=== PATIENT | female | born 1950 | race Caucasian/White ===

== ENCOUNTER 2019-01-02 08:15 | Outpatient (CLI) | payer BC ==
--- NOTE | 2019-01-02 10:27 | RAD ---
XR Barium Swallow Esophagus HISTORY: Evaluation of hiatal hernia preop COMPARISON: CT examination of 06/09/2015. FINDINGS: The patient ingested barium and crystals without difficulty. Esophageal mucosa and motility were normal. A hernia is demonstrated which appears to be more of a hiatal type hernia. It is not a true paraesophageal hernia. The GE junction is located along the posterior aspect on the fundus of the stomach, but is still slightly above the esophageal hiatus and therefore is not a true paraesophageal hernia. No reflux, stricture or mass demonstrated.. IMPRESSION: Hiatal hernia as described above
== END 2019-01-02 08:16 | disposition home or self-care (01) ==
LOC: RAD 08:15
PROVIDERS: ATTEND Surgery
DX: K44.9 Diaphragmatic hernia without obstruction or gangrene (principal)
CPT/HCPCS: 74220

== ENCOUNTER 2019-01-29 05:52 | Outpatient (CLI) | payer BC ==
[2019-01-29 11:15] LABS: #Eosinphils 0.2 thou/uL (0.0-0.7); #Lymphocytes 1.3 thou/uL (1.20-3.40); #Monocytes 0.4 thou/uL (0.11-0.59); #Neutrophils 4.6 thou/uL (1.40-6.50); %Basophils 0.4 % (0.0-1.0); %Eosinophils 2.7 % (0.0-10.0); %Lymphocytes 20.7 % (21.0-51.0); %Monocytes 5.6 % (0.0-10.0); %Neutrophils 70.6 % (42.0-75.0); Hemoglobin 11.9 g/dL (12.0-16.0); Mean Corpuscular HGB CONC 32.1 g/dL (32.0-36.0); Mean Corpuscular Volume 84.1 fL (78.0-98.0); Mean Platelet Volume 7.5 fL (7.4-10.4); Platelet Count 276 thou/uL (130-400); RBC Distribution Width 13.4 % (11.5-14.5); White Blood Cell (WBC) Count 6.4 thou/uL (4.8-10.8)
[2019-01-29 11:35] LABS: Anion Gap 12 mmol/L (10-20); BUN (Urea Nitrogen) 15 mg/dL (9.8-20.1); Calc. Creatinine Clearance 0 mL/min (70-130); Calcium 9.5 mg/dL (7.8-10.44); Carbon Dioxide 26 mmol/L (23-31); Chloride 102 mmol/L (98-107); Estimated GFR-MDRD 66; Glucose 118 mg/dL (80-115); Sodium 136 mmol/L (136-145)
--- NOTE | 2019-01-30 22:56 | EKG ---
Test Reason : Blood Pressure : / mmHG Vent. Rate : 076 BPM Atrial Rate : 076 BPM P-R Int : 164 ms QRS Dur : 076 ms QT Int : 372 ms P-R-T Axes : 020 017 042 degrees QTc Int : 418 ms Normal sinus rhythm Normal ECG No previous ECGs available Confirmed by Ralf RODGERS ([id number]) on 01/30/2019 10:56:35 PM Referred By: MARYCHUY Confirmed By:Ralf RODGERS
== END 2019-01-29 05:53 | disposition home or self-care (01) ==
LOC: LABBT 05:52
PROVIDERS: ATTEND Surgery
DX: Z01.818 Encounter for other preprocedural examination (principal); K44.9 Diaphragmatic hernia without obstruction or gangrene
CPT/HCPCS: 80048; 85025; 93005; 93010

== ENCOUNTER 2019-01-30 05:54 | Inpatient (IN) | payer BC ==
[2019-01-29 10:30] VITALS: BMI 40.6
[2019-01-30] MEDS ORDERED: ceFAZolin Sodium (SDC) 2 GM/100 ML BAG ONE (06:10)
[2019-01-30] MEDS ORDERED: Fentanyl 100 MCG/2 ML VIAL ONE ×4 (06:32→11:06)
[2019-01-30] MEDS ORDERED: Bupivacaine/Epinephrine 0.25% 30 ML VIAL ONE (06:36)
[2019-01-30] MEDS ORDERED: Bupivacaine HCl 0.5%/Epinephrine 1:200,000/PF 30 ml Vial ONE (09:12)
--- NOTE | 2019-01-30 09:22 | RAD ---
EXAM: Single view of the chest HISTORY: Recent surgery. Evaluate for pneumothorax COMPARISON: None FINDINGS: Single view of the chest shows a normal sized cardiomediastinal silhouette. An endotrachea l tube is seen with its tip at the s[place]. There is a moderate right pneumothorax. There is no evidence of consolidation, mass, or pleural effusion. The bones are unremarkable. IMPRESSION: Moderate right pneumothorax. Dr. Wade notified of findings at 9:19 AM on 01/30/2019
--- NOTE | 2019-01-30 09:29 | RAD ---
EXAM: Single view of the chest HISTORY: Right pneumothorax COMPARISON: 01/30/2019 FINDINGS: Single view of the chest shows a normal sized cardiomediastinal silhouette. A chest tube i s now seen with evacuation of the right pneumothorax. The endotracheal tube is seen with its tip at the sakina. There is no evidence of consolidation, mass, or pleural effusion. The bones are unremark able. IMPRESSION: Evacuation of right pneumothorax
[2019-01-30] MEDS ORDERED: HYDROmorphone 2 MG/ML VIAL ONE (09:55)
[2019-01-30] MEDS ORDERED: Zolpidem Tartrate 5 MG TAB PO PRN (10:42)
[2019-01-30] MEDS ORDERED: Naloxone HCl 0.4 mg/ml Vial IV PRN (10:42)
[2019-01-30] MEDS ORDERED: diphenhydrAMINE 25 MG CAP PO PRN (10:42)
[2019-01-30] MEDS ORDERED: Ondansetron HCl/PF 4 MG/2 ML Vial IVP PRN (10:42)
[2019-01-30] MEDS ORDERED: Promethazine HCl 25 MG/ML VIAL IM PRN ×3 (10:42→11:35)
[2019-01-30] MEDS ORDERED: Promethazine HCl 25 MG/ML VIAL SLOW IVP PRN (10:42)
[2019-01-30] MEDS ORDERED: Ondansetron PF 4 MG/2 ML Vial IVP PRN ×2 (10:42→11:35)
[2019-01-30] MEDS ORDERED: diphenhydrAMINE 50 MG/ML VIAL IVP PRN (10:42)
[2019-01-30] MEDS ORDERED: HYDROmorphone 2 MG/ML VIAL SLOW IVP PRN (10:42)
[2019-01-30] MEDS ORDERED: diphenhydrAMINE 50 MG/ML VIAL IM PRN (10:42)
[2019-01-30] MEDS ORDERED: Communication Order-Pharmacy FS SCH (10:45)
[2019-01-30] MEDS ORDERED: Dextrose 50% Abboject 50 ML SYRINGE SLOW IVP PRN (11:35)
[2019-01-30] MEDS ORDERED: Morphine 2 MG/ML SYRINGE SLOW IVP PRN (11:35)
[2019-01-30] MEDS ORDERED: hydrALAZINE 20 MG/ML VIAL SLOW IVP PRN (11:35)
[2019-01-30] MEDS ORDERED: Morphine 4 MG/ML VIAL SLOW IVP PRN (11:35)
[2019-01-30] MEDS ORDERED: Dextrose 5% in Water 1,000 ML IV PRN (11:35)
[2019-01-30] MEDS ORDERED: Lidocaine 1% PF 5 ML VIAL ONE (12:57)
[2019-01-30] MEDS ORDERED: Rocuronium Bromide 10 MG/ML (10ML VIAL) ONE (12:57)
[2019-01-30] MEDS ORDERED: Glycopyrrolate 0.2 MG/ML 5 ML SYRINGE ONE (12:57)
[2019-01-30] MEDS ORDERED: Dexamethasone 20 MG/5 ML VIAL ONE (12:57)
[2019-01-30] MEDS ORDERED: Ondansetron PF 4 MG/2 ML Vial ONE (12:57)
[2019-01-30] MEDS ORDERED: PROPOFOL 200 MG/20 ML VIAL ONE (12:57)
[2019-01-30] MEDS ORDERED: Acetaminophen 1,000 MG in Premix Bag 1 BAG IVPB PRN (17:16)
[2019-01-30] MEDS: Sodium Chloride 0.9% 1,000 ML IV SCH (17:21)
[2019-01-30] MEDS: Enoxaparin Sodium 40 MG/0.4 ML SYRINGE SC SCH (21:15)
[2019-01-31 05:45] LABS: #Monocytes 0.6 thou/uL (0.11-0.59); #Neutrophils 8.5 thou/uL (1.40-6.50); %Basophils 0.3 % (0.0-1.0); %Eosinophils 0.1 % (0.0-10.0); %Monocytes 5.9 % (0.0-10.0); %Neutrophils 83.7 % (42.0-75.0); Hemoglobin 10.5 g/dL (12.0-16.0); Mean Corpuscular HGB CONC 32.9 g/dL (32.0-36.0); Mean Corpuscular Hemoglobin 28.3 pg (27.0-31.0); Mean Platelet Volume 7.5 fL (7.4-10.4); Platelet Count 271 thou/uL (130-400); RBC Distribution Width 13.5 % (11.5-14.5); White Blood Cell (WBC) Count 10.2 thou/uL (4.8-10.8)
[2019-01-31 06:10] LABS: Anion Gap 13 mmol/L (10-20); BUN (Urea Nitrogen) 13 mg/dL (9.8-20.1); Calc. Creatinine Clearance 108 mL/min (70-130); Carbon Dioxide 24 mmol/L (23-31); Chloride 102 mmol/L (98-107); Estimated GFR-MDRD 74; Glucose 112 mg/dL (80-115); Potassium 4.6 mmol/L (3.5-5.1); Sodium 134 mmol/L (136-145)
--- NOTE | 2019-01-31 07:16 | PDOC.GSPN ---
Surgery Progress Note: Subj - Subjective Narrative: Mrs. Louis is a 68 year old female who is day 1 post-op after hiatal hernia repair and right chest tube placement for right pneumothorax. She states she is doing okay this morning, however had a "rough" night. She had difficulty sleeping since her chest tube is uncomfortable and not allowing her to take in a full deep breath. However, she is tolerating liquids (water and broth) very well and able to ambulate to and from the bathroom. Using spirometer consistently. Patient reports increased frequency of urination without burning, fever, or chills. She has involuntarily urinated the bed several times since surgery and overnight. She describes that she has little control over when she will urinate. She denies chest pain, reflux, dizziness, nausea, vomiting, and bowel movements or passing of flatus. Surgery Progress Note: Obj - Vital signs Vital signs: Vital Signs - Most Recent Temp Pulse Resp BP Pulse Ox 98.4 F 93 16 130/74 93 L 01/31/19 03:03 01/31/19 03:03 01/31/19 03:03 01/31/19 03:03 01/31/19 03:03 - Physical Exam General: no distress, well developed, other (Mild discomfort due to chest tube placement. Uncomfortable when coughing.) Neck: no lymphadectomy, no masses Cardiovascular: regular rate and rhythm, no murmur Respiratory: clear to auscultation, other (Lungs are clear, reduced expansion but air movement is present. Patient is using spirometry consistently. No fluid/ blood seen in pleurovac this morning.) Abdomen: soft, nondistended, positive bowel sounds, appropriately tender, other (No bruits auscultated. Has not passed flatus.) Genitourinary (Female): other (Patient reports involuntarily urinating on herself since surgery.) Integumentary: no rash Psychiatric: oriented to time, oriented to person, oriented to place Wound: dressing clean,dry,intact, healing well, other (Incisions (5) healing well, non-erythematous, and without purulent discharge.) Surgery Progress Note: Results - Labs Result Diagrams: 01/31/19 04:15 01/31/19 04:15 Lab results: Laboratory Results - last 24 hr 01/31/19 01/31/19 04:15 04:15 WBC 10.2 RBC 3.70 L Hgb 10.5 L Hct 31.8 L MCV 86.0 MCH 28.3 MCHC 32.9 RDW 13.5 Plt Count 271 MPV 7.5 Neutrophils % 83.7 H Lymphocytes % 10.0 L Monocytes % 5.9 Eosinophils % 0.1 Basophils % 0.3 Neutrophils # 8.5 H Lymphocytes # 1.0 L Monocytes # 0.6 H Eosinophils # 0.0 Basophils # 0.0 Sodium 134 L Potassium 4.6 Chloride 102 Carbon Dioxide 24 Anion Gap 13 BUN 13 Creatinine 0.78 Estimated GFR (MDRD) 74 Glucose 112 Calcium 9.0 Surgery Progress Note: A/P - Plan Plan: Mrs. Louis is a 68 year old female who is day 1 post-op after hiatal hernia repair and right chest tube placement. Hiatal Hernia --Patient recovering well from surgery. -Continue full liquid diet today. -Increase ambulation as tolerable. -Will monitor passing of flatus and bowel movements today. Right Pneumothorax --Patient currently has right chest tube in place. No fluid/blood seen on pleurovac this morning. -Repeat X-ray is scheduled for this morning. -Continue use of spirometer today. Urinary Incontinence -Will continue to monitor her involuntary urination and increased urinary frequency today. Addendum - Physician - Physician Attestation Date/Time: 01/31/19 [id number] I personally performed or re-performed the physical examination and medical decision making. I have verified all student documentation or findings, including history, physical exam and/or medical decision making. C/o pain at chest tube site. CXR no ptx ,will place on water seal. OOB, con fulls.
--- NOTE | 2019-01-31 08:01 | RAD ---
PORTABLE CHEST: HISTORY: Pneumothorax. COMPARISON: 01/30/2019 FINDINGS: The right chest tube is unchanged. No evidence of pneumothorax. Some patchy atelectasis or infiltra te in the left lung base is seen to the cardiac silhouette. The ET tube has been removed. IMPRESSION: Question left basilar atelectasis or infiltrate. No pneumothorax. No significant interval change. POS: [facility]
[2019-01-31] MEDS: fentaNYL Citrate/PF 2,000 MCG in Sodium Chloride 0.9% 60 ML IV PRN (09:34)
[2019-01-31] MEDS: Pantoprazole 40 MG VIAL IVP SCH (09:39)
[2019-01-31] MEDS: Anastrozole 1 MG TAB PO SCH (09:44)
[2019-01-31] MEDS: Sodium Chloride 0.9% 1,000 ML IV SCH (14:59)
[2019-01-31] MEDS ORDERED: Prevnar 13-Val Conj/PF 0.5 ML SYRINGE IM ONE (16:00)
[2019-01-31] MEDS ORDERED: Sodium Chloride 0.9% 1,000 ML IV SCH (16:30)
[2019-01-31] MEDS: Enoxaparin Sodium 40 MG/0.4 ML SYRINGE SC SCH (20:15)
[2019-02-01 00:52] LABS: #Eosinphils 0.1 thou/uL (0.0-0.7); #Lymphocytes 2.9 thou/uL (1.20-3.40); #Monocytes 0.7 thou/uL (0.11-0.59); %Basophils 0.1 % (0.0-1.0); %Eosinophils 0.8 % (0.0-10.0); %Lymphocytes 25.1 % (21.0-51.0); Hemoglobin 11.7 g/dL (12.0-16.0); Mean Corpuscular HGB CONC 32.5 g/dL (32.0-36.0); Mean Corpuscular Hemoglobin 28.1 pg (27.0-31.0); Mean Corpuscular Volume 86.4 fL (78.0-98.0); Mean Platelet Volume 7.3 fL (7.4-10.4); Platelet Count 296 thou/uL (130-400); RBC Distribution Width 13.5 % (11.5-14.5); Red Blood Cell (RBC) Count 4.15 mill/uL (4.20-5.40); White Blood Cell (WBC) Count 11.7 thou/uL (4.8-10.8)
[2019-02-01 01:10] LABS: Anion Gap 16 mmol/L (10-20); BUN (Urea Nitrogen) 14 mg/dL (9.8-20.1); Calc. Creatinine Clearance 89 mL/min (70-130); Calcium 9.5 mg/dL (7.8-10.44); Carbon Dioxide 24 mmol/L (23-31); Chloride 99 mmol/L (98-107); Estimated GFR-MDRD 59; Glucose 113 mg/dL (80-115); Potassium 3.6 mmol/L (3.5-5.1); Sodium 135 mmol/L (136-145)
[2019-02-01] MEDS ORDERED: Diltiazem HCl 125 MG, Admixture Fee 1 EACH in Sodium Chloride 0.9% 100 ML IVPB SCH (01:45)
[2019-02-01] MEDS ORDERED: Dextrose 5 % And 0.9 % NaCl 1,000 ML IV SCH ×2 (01:45→09:29)
[2019-02-01] MEDS ORDERED: Digoxin 0.5 MG/2 ML AMP ONE ×2 (02:28→04:34)
[2019-02-01] MEDS ORDERED: Digoxin 0.5 MG/2 ML AMP SLOW IVP SCH (02:45)
--- NOTE | 2019-02-01 04:42 | CON ---
DATE OF CONSULTATION: 02/01/2019 PRIMARY SERVICE ATTENDING: Joseph Wade MD PRIMARY CARE PROVIDER: Dr. Liam Williamson with [facility]. REASON FOR CONSULTATION: Atrial fibrillation with rapid ventricular response. HISTORY OF PRESENT ILLNESS: This is a 68-year-old female, who was initially admitted under the surgical service, undergoing a laparoscopic hiatal hernia repair for diaphragmatic hernia with associated GI bleed. The patient underwent the procedure on 01/30/2019 with associated right pneumothorax as a complication due to adhesions of the gastric contents at the time of the repair. The patient underwent subsequent right chest tube insertion and has been managed postoperatively with a pain pump. The patient states she has had no specific bowel movements since the procedure; however, last bowel movement was just prior to the procedure on 01/30/2019. The patient has noted increasing abdominal distention over the last 12 to 14 hours. The patient denied any jennifer nausea, vomiting or fever. The patient was discovered by nursing personnel with elevated heart rate with EKG confirming atrial fibrillation with rapid ventricular response with heart rates in the 150s to 170s. The patient denies any prior history of coronary disease or cardiac conditions. The patient does admit to a history of recurrent anemia, requiring 4 packed red blood cell transfusions in 2019. The patient was transferred to the telemetry unit for further evaluation and control of the atrial fibrillation. PAST MEDICAL HISTORY: 1. Diaphragmatic hernia, status post laparoscopic hiatal hernia repair, postop day #3. 2. Chronic normocytic anemia, status post 4 units of packed red blood cells in 2019. 3. Breast carcinoma. PAST SURGICAL HISTORY: 1. Status post tonsillectomy. 2. Status post appendectomy. 3. Status post breast lumpectomy. CURRENT MEDICATIONS: 1. Anastrozole 1 mg p.o. daily. 2. Enteric-coated aspirin 81 mg p.o. daily. 3. Vitamin D3 1000 units p.o. daily. 4. Vitamin B12 5000 mcg p.o. daily. 5. Ferrous sulfate 325 mg p.o. daily. 6. Glucosamine 1 capsule p.o. daily. 7. Protonix 40 mg p.o. b.i.d. 8. Red yeast rice extract 600 mg p.o. daily. 9. Coenzyme Q10 200 mg p.o. daily. ALLERGIES: NO KNOWN DRUG ALLERGIES. FAMILY HISTORY: Father after a diagnosis of cancer. SOCIAL HISTORY: Resides in [place], [place]. Retired. No tobacco or illicit drug use. Social alcohol use. REVIEW OF SYSTEMS: CONSTITUTIONAL: Negative for weight loss or gain, ability to conduct usual activities. SKIN: Negative for rash, itching. EYES: Negative for double vision, pain. ENT/MOUTH: Negative for nose bleeding, neck stiffness, pain, tenderness. CARDIOVASCULAR: Negative for palpitations, dyspnea on exertion, orthopnea. RESPIRATORY: Negative for shortness of breath, wheezing, cough, hemoptysis, fever or night sweats. GASTROINTESTINAL: Negative for poor appetite, abdominal pain, heartburn, nausea, vomiting, constipation, or diarrhea. GENITOURINARY: Negative for urgency, frequency, dysuria, nocturia. MUSCULOSKELETAL: Negative for pain, swelling. NEUROLOGIC/PSYCHIATRIC: Negative for anxiety, depression. ALLERGY/IMMUNOLOGIC: Negative for skin rash, bleeding tendency. Otherwise negative except as stated per HPI. PHYSICAL EXAMINATION: VITAL SIGNS: Blood pressure 124/68, pulse 170, respiratory rate 20, temperature 98.5 degrees Fahrenheit, and O2 saturation 96% on room air. GENERAL APPEARANCE: This is a 68-year-old female, alert and oriented x3, pleasant, responsive, in no acute distress. HEENT: Pupils are equal, round, reactive to light and accommodation. Extraocular muscles are intact. No scleral icterus. No conjunctival injection. Nares are patent. OP is clear. Teeth in fair repair. NECK: Supple. No cervical adenopathy. No thyromegaly. No carotid bruits. No JVD appreciated. Cervical spine with full active and passive range of motion. No meningeal signs noted. CHEST: Lungs are clear to auscultation bilaterally. Right chest with chest tube in place. CARDIOVASCULAR EXAM: S1 and S2 with irregular rate and rhythm with tachycardia. ABDOMEN: Distended with mild tenderness to palpation in the mid epigastric region. Postsurgical changes consistent with prior laparoscopic procedure noted. Bowel sounds are diminished in all 4 quadrants. EXTREMITIES: Warm and dry with fair turgor. No clubbing, cyanosis or asymmetric edema appreciated. Pulses palpable distally at the dorsalis pedis, posterior tibial, and popliteal arteries bilaterally. Capillary refill less than 2 seconds. NEUROLOGIC: Cranial nerves 2 through 12 are grossly intact. No focal or lateralizing signs appreciated. PERTINENT LAB AND X-RAY FINDINGS: Sodium 135, potassium 3.6, chloride 99, CO2 of 24, BUN 14, creatinine 0.94, glucose 113, and calcium 9.5. CBC showed a white blood cell count of 11.7, hemoglobin 11.7, hematocrit 36, and platelet count 296 with normal differential. Portable chest x-ray dated 02/01/2019 by my interpretation shows right-sided chest tube in appropriate position. No evidence of worsening pneumothorax. No acute or new process identified. EKG dated 02/01/2019 at 12:10 a.m. showed atrial fibrillation with rapid ventricular response with heart rates in the 160s. ASSESSMENT/PLAN: 1. New-onset atrial fibrillation with rapid ventricular response. The patient will be admitted to the telemetry unit. Start Cardizem 20 mg IV bolus x1 followed by Cardizem at 10 mg/hour infusion. Check TSH and magnesium level in the a.m. Check 2D transthoracic echocardiogram for wall motion abnormality and valvular function. Consult Cardiology Service in the a.m. for any further recommendations. We will continue current strategy for rate control. Hold anticoagulation due to recent surgical intervention and new-onset process. 2. Abdominal distention. Concern for postoperative ileus given the patient's recent surgical intervention. Check KUB of the abdomen now. N.p.o. status except for sips of water and ice. General Surgery to re-evaluate in the a.m. 3. Right pneumothorax. Continue chest tube drainage to water-seal. Chest imaging reassuring for control of a previous pneumothorax. 4. Chronic normocytic anemia. Stable currently. We will continue to monitor hemoglobin trend. Repeat CBC in the a.m. 5. Diaphragmatic hernia, status post laparoscopic repair. Postop day #3. Continue pain control with [employer] pump. 6. Prophylaxis. SCDs while in bed. Lovenox 40 mg subcutaneously daily. 7. Code status is full. Surrogate medical decision maker is the patient's daughter. Thank you for the consult. We will continue to monitor with primary service. Job ID: [id number]
--- NOTE | 2019-02-01 08:11 | RAD ---
CHEST ONE VIEW: Indication: Heart racing at 150 bpm. Comparison: 01-21-19 IMPRESSION: Right sided thoracostomy tube is unchanged. No pneumothorax is evident. The lungs are clear. Heart si ze is normal. POS: [facility]
--- NOTE | 2019-02-01 08:18 | RAD ---
CHEST ONE VIEW: History: Tachycardia. Comparison: 02-01-19 at 12:25 a.m. FINDINGS: Stable cardiac silhouette. The pulmonary vessels and hilum are normal. Costophrenic angles are clear. No masses or consolidation. Stable right sided chest tube. No significant pneumothorax. IMPRESSION: No significant change. POS: [facility]
--- NOTE | 2019-02-01 08:19 | RAD ---
ONE VIEW ABDOMEN: History: Abdominal distention. Evaluate for post-operative ileus. FINDINGS: Supine radiograph demonstrates air filled loops of upper normal colon. Paucity of small bowel gas. r is noted within the stomach. IMPRESSION: Post op ileus is suspected. Continued surveillance to ensure resolution is recommended. POS: [facility]
[2019-02-01] MEDS: Anastrozole 1 MG TAB PO SCH (08:45)
[2019-02-01] MEDS: Pantoprazole 40 MG VIAL IVP SCH (08:45)
--- NOTE | 2019-02-01 09:24 | PDOC.GSPN ---
Surgery Progress Note: Subj - Subjective Patient reports: feels better Narrative: Mrs. Louis is a 68 y/o female who is post-op day 2 for hiatal hernia repair and right chest tube for right pneumothorax. Went into atrial fibrillation with RVR last night and was moved to telemetry. Patient is feeling better this morning. She experienced chest pain and dyspnea last night, however those have resolved. Her atrial fibrillation with RVR converted back to normal sinus rhythm around 5:00am this morning. She is urinating well and not voiding involuntarily anymore. She is currently NPO as of last night and suction was put back on her chest tube. Patient is continuing to use her spirometer device consistently, but has mild pain with coughing for which she manages with the patient-controlled fentanyl device. Patient denies nausea, vomiting, fevers, chills, current chest pain, current shortness of breath, or dizziness. She has not passed flatus or had a bowel movement yet since surgery. Surgery Progress Note: Obj - Vital signs Vital signs: Vital Signs - Most Recent Temp Pulse Resp BP Pulse Ox 98.3 F 84 18 126/58 L 92 L 02/01/19 07:40 02/01/19 07:40 02/01/19 07:40 02/01/19 07:40 02/01/19 07:40 - Physical Exam General: no distress ENT: normal mucosa Neck: no lymphadectomy, no masses Cardiovascular: regular rate and rhythm, no murmur Respiratory: clear to auscultation, normal expansion, other (Some pain with coughing.) Abdomen: positive bowel sounds, distended (Abdomen is distended and slightly firm.) Integumentary: no rash Musculoskeletal: other (No edema in lower extremities.) Wound: dressing clean,dry,intact, healing well (No signs of erythema or purulent discharge.) Surgery Progress Note: Results - Labs Result Diagrams: 02/01/19 00:45 02/01/19 00:45 Lab results: Laboratory Results - last 24 hr 02/01/19 02/01/19 02/01/19 00:45 00:45 04:14 WBC 11.7 H RBC 4.15 L Hgb 11.7 L Hct 35.9 L MCV 86.4 MCH 28.1 MCHC 32.5 RDW 13.5 Plt Count 296 MPV 7.3 L Neutrophils % 68.0 Lymphocytes % 25.1 Monocytes % 6.0 Eosinophils % 0.8 Basophils % 0.1 Neutrophils # 8.0 H Lymphocytes # 2.9 Monocytes # 0.7 H Eosinophils # 0.1 Basophils # 0.0 Sodium 135 L Potassium 3.6 Chloride 99 Carbon Dioxide 24 Anion Gap 16 BUN 14 Creatinine 0.94 Estimated GFR (MDRD) 59 Glucose 113 Calcium 9.5 Magnesium 2.0 TSH 3rd Generation 02/01/19 04:14 WBC RBC Hgb Hct MCV MCH MCHC RDW Plt Count MPV Neutrophils % Lymphocytes % Monocytes % Eosinophils % Basophils % Neutrophils # Lymphocytes # Monocytes # Eosinophils # Basophils # Sodium Potassium Chloride Carbon Dioxide Anion Gap BUN Creatinine Estimated GFR (MDRD) Glucose Calcium Magnesium TSH 3rd Generation 1.8405 Surgery Progress Note: A/P - Plan Plan: Mrs. Louis is a 68 y/o female who is post-op day 2 for hiatal hernia repair and right chest tube for right pneumothorax. Went into atrial fibrillation with RVR last night and was moved to telemetry. Hiatal Hernia Repair --Likely experiencing some ileus from abdominal surgery. -Convert NPO to full liquid diet -Will monitor passing of flatus and bowel movements. -Continue using spirometer jenna cough to help with lung expansion -Promote ambulation and walking as patient progresses. Right Pneumothorax --Currently has right chest tube in place on suction. No air leaks as tested at bedside. -Continue suction and monitor drainage. -Plan to take tube out tomorrow. Atrial fibrillation with RVR event --Currently in regular sinus rhythm and asymptomatic -Continue Cardizem IV and monitor rhythm. Urinary Incontinence --Resolved, currently voiding normally.
--- NOTE | 2019-02-01 20:25 | CON ---
DATE OF CONSULTATION: 02/01/2019 INDICATION FOR CONSULTATION: A 68-year-old female, who is status post a hiatal hernia repair with an iatrogenic pneumothorax during the procedure, who has developed an episode of atrial fibrillation with rapid ventricular response. This was converted back to normal sinus rhythm after about 5 hours of IV diltiazem. At this time, she is very comfortable. She has had a cardiac workup approximately 5 years ago and was unremarkable. She has had a long history of anemia and has had a hiatal hernia for quite some time. She has required about 4 units of packed red blood cells during this year already and was advised to seek further GI consultation. She was then during the evaluation, noted to have a hiatal hernia as well as the ulcerations and was advised to undergo surgical correction. This was performed and then she developed postoperatively the atrial fibrillation with rapid ventricular response, approximately 10 or 12 o'clock yesterday evening and then converted back to sinus rhythm earlier this morning with the IV diltiazem. Originally, she was asymptomatic, but then upon questioning, she did notice her heart was beating fast, but she has had no previous history of this in the past. She denies any symptoms. At home, she is able to do most of her daily chores without too much complaints or problems or symptoms. She has had no chest pain during this time or shortness of breath or lower extremity edema. Does not have any symptoms of congestive heart failure otherwise. She did have an echocardiogram performed and I will review that later. At this time, she is comfortable and is maintaining sinus rhythm on the IV diltiazem. She is slowly starting to take p.o. medications after her surgical procedure day before yesterday. PAST MEDICAL HISTORY: Significant for the recent hernia repair as noted above. She has history of chronic anemia, which is normocytic, she takes iron, she has had transfusions, and hopefully this will improve now that she has had surgical correction of the hiatal hernia and the ulcerations. She has had a history of a left breast cancer with a lumpectomy. She has had a tonsillectomy, appendectomy. She has also had chronic knee pain. She has diverticulitis. MEDICATIONS: Prior to admission include; 1. Enteric-coated aspirin 81 mg a day. 2. Anastrozole 1 mg daily. 3. Vitamin D3. 4. Vitamin B12. 5. Glucosamine. 6. Ferrous sulfate. 7. Protonix. 8. Red yeast rice and coenzyme Q10. ALLERGIES: NONE. FAMILY HISTORY: Noncontributory for any early heart disease. Her father did have a myocardial infarction at age 69, I believe he had also a diagnosis of malignancy. SOCIAL HISTORY: She is retired. She has no alcohol or tobacco abuse. She lives at home. She does her daily routines without too many complications or problems. REVIEW OF SYSTEMS: Her 12-point review of systems is unremarkable except for the knee pain and some fatigue as when she is more anemic. PHYSICAL EXAMINATION: GENERAL: Reveals a well-developed, well-nourished female, who is in no acute distress at this time. She is alert. She is oriented. She is very pleasant. VITAL SIGNS: Show blood pressure of 126/58, which increased at later today to 159/68. She is afebrile. Heart rate is in the 80s and shows a sinus rhythm, respiratory rate is 18, O2 saturation 95%. Please note that previously her heart rate was up to 168 beats per minute with atrial fibrillation prior to converting to sinus rhythm. HEENT: Shows the head to be normocephalic and atraumatic. Carotid pulses are present without bruits. CHEST: Clear to auscultation. She does have a chest tube in the right hemothorax area. ABDOMEN: Distended. She is tympanic, but does have some bowel sounds. EXTREMITIES: Show no clubbing, cyanosis, or edema. CARDIOVASCULAR: She has a regular rate and rhythm with normal S1 and S2. There was no S3 or S4. There were no significant murmurs, heaves, thrills, bruits, or rubs. Pedal pulses are present. NEUROLOGIC: She appears to be fully intact. SKIN: Warm and dry. LABORATORY DATA: Show a WBC of 11.7, hemoglobin 11.7, platelet count of 296,000. Her sodium was 135, BUN was 14, creatinine 0.94, blood sugar was 113. EKG earlier showed atrial fibrillation with rapid ventricular response at 158 beats per minute, but no ST-segment changes were noted. There were very minimal nonspecific changes, did not indicate evidence of ischemia. At this time, she appears to be doing quite well. I will review her echocardiogram. IMPRESSION: 1. Atrial fibrillation with rapid ventricular response, which is converted back to sinus rhythm with diltiazem. We will switch her from IV diltiazem to p.o. diltiazem and hopefully just within the next 1 to 2 weeks, this can be stopped. She did have a workup about 5 years ago, which was unremarkable. Her EKG also at this time with the tachycardia did not show any significant ST-segment depression that would indicate ischemia. It maybe advisable, when she has recovered from her hiatal hernia repair that she will undergo a repeat stress test since the last one was approximately 5 years ago, and again I will review her echocardiogram. 2. History of hiatal hernia repair. She seems to be doing quite well postoperatively. She did have an iatrogenic pneumothorax due to adhesions with the hiatal hernia, but appears to be doing quite well. The chest tube remains in place. 3. History of chronic anemia. This hopefully will improve after surgical procedure. At this time, we will continue to follow the patient with you, but further recommendations will depend on the results of the echocardiogram. Job ID: [id number]
[2019-02-01] MEDS: fentaNYL Citrate/PF 2,000 MCG in Sodium Chloride 0.9% 60 ML IV PRN (20:37)
[2019-02-01] MEDS: Enoxaparin Sodium 40 MG/0.4 ML SYRINGE SC SCH (20:45)
--- NOTE | 2019-02-02 06:48 | PDOC.HOSPP ---
- Subjective Encounter Date: 02/01/19 Encounter Time: 10:00 Subjective: pt up in bed no complains - Objective Vital Signs & Weight: Vital Signs (12 hours) Temp Pulse Resp BP Pulse Ox 02/02/19 04:25 98.8 F 87 16 133/62 96 02/02/19 00:33 98.1 F 85 16 177/58 H 92 L 02/01/19 19:00 79 18 94 L Weight Weight 215 lb I&O: 01/31/19 02/01/19 02/02/19 06:59 06:59 06:59 Intake Total 3650 1800 500 Output Total 110 100 Balance 3650 1690 400 Result Diagrams: 02/01/19 00:45 02/01/19 00:45 Additional Labs: Accuchecks 02/01/19 17:28 POC Glucose 103 ROS - Review of Systems Respiratory: denies: cough, dry, shortness of breath, hemoptysis, SOB with excertion, pleuritic pain, sputum, wheezing, other Cardiovascular: denies: chest pain, palpitations, orthopnea, paroxysmal noc. dyspnea, edema, light headedness, other - Medication Medications: Active Medications Generic Name Dose Route Start Last Admin Trade Name Freq PRN Reason Stop Dose Admin Anastrozole 1 mg 01/31/19 09:00 02/01/19 08:45 Arimidex PO 1 mg DAILY ERI Administration Enoxaparin Sodium 40 mg 01/30/19 21:00 02/01/19 20:45 Lovenox SC 40 mg 2100 ERI Administration Fentanyl Citrate 2,000 mcg/ 100 mls @ 0 mls/hr 01/30/19 10:42 02/01/19 20:37 Sodium Chloride IV 100 mls INF PRN Administration Pain As Directed Dextrose/Sodium Chloride 1,000 mls @ 0 mls/hr 02/01/19 09:29 02/01/19 13:59 D5 0.9% Ns IV 1,000 mls .Q0M ERI Administration KVO Pantoprazole Sodium 40 mg 01/31/19 09:00 02/01/19 08:45 Protonix IVP 40 mg DAILY ERI Administration - Exam Neck: negative: supple, symmetric, no JVD, no thyromegaly, no lymphadenopathy, no carotid bruit, JVD Heart: negative: RRR, no murmur, no gallops, no rubs, normal peripheral pulses, irregular, diminshed peripheral pulses, murmur present, II/IV, III/IV Respiratory: negative: CTAB, no wheezes, no rales, no ronchi, normal chest expansion, no tachypnea, normal percussion, rales, rhonchi, tachypneic, wheezes Hosp A/P (1) Atrial fibrillation with RVR Code(s): I48.91 - UNSPECIFIED ATRIAL FIBRILLATION Status: Acute (2) S/P hernia repair Code(s): Z98.890 - OTHER SPECIFIED POSTPROCEDURAL STATES; Z87.19 - PERSONAL HISTORY OF OTHER DISEASES OF THE DIGESTIVE SYSTEM Status: Acute (3) Obesity Code(s): E66.9 - OBESITY, UNSPECIFIED Status: Acute (4) HTN (hypertension) Code(s): I10 - ESSENTIAL (PRIMARY) HYPERTENSION Status: Acute - Plan pt is back in SR, cardiology has been consulted. she was suppose to get a sleep study but could not afford the copay. pt encouraged to ambulate.
--- NOTE | 2019-02-02 08:02 | OP ---
DATE OF PROCEDURE: 01/30/2019 PREOPERATIVE DIAGNOSIS: Paraesophageal hiatal hernia, [id number]. POSTOPERATIVE DIAGNOSES: Paraesophageal hiatal hernia, [id number] plus right-sided pneumothorax. PROCEDURES PERFORMED: 1. Laparoscopic hiatal hernia repair with fundoplication without mesh. 2. Right chest tube placement. ANESTHESIA: General. ESTIMATED BLOOD LOSS: 50 mL. COMPLICATIONS: Iatrogenic right pneumothorax secondary to hernia sac and right pleura be infused. DESCRIPTION OF PROCEDURE: The patient was taken to the operating room and laid supine on the operating room table. After general anesthetic was obtained, her arms and legs were double strapped to bariatric table. She was placed in a split-leg position. After her abdomen was prepped and draped in a sterile fashion, left subcostal 5-mm Optiview trocar was placed in usual fashion and high-flow pneumoperitoneum was obtained. In right lower quadrant and left lower quadrant, 5-mm ports were placed. A 5 mm port was placed just to the right of the xiphoid. Camera port was placed two-thirds the distance of xiphoid to umbilicus. The 5-mm left subcostal port switched out to 8-mm port. The patient was placed in reverse Trendelenburg position. Her bare area gastrohepatic ligament was opened exposing the caudate lobe. This allows for localization of the right odalys of the diaphragm. The stomach was reduced back into the abdominal cavity. A third to half of the stomach was up in the chest. Mediastinum was entered on the right and carefully dissection was performed. The short gastrics were taken down for the upper third of the stomach, exposing the left odalys of the diaphragm. The left-sided hernia sac was then dissected free. A circumferential dissection of the esophagus was performed. A Toy drain was wrapped around the GE junction and held in place using a PDS Endoloop. This allowed for retraction of the GE junction back down into the abdominal cavity. On the right side, there were fairly dense adhesions to the hernia sac in taking these down just lateral to the esophagus. A small hole was made in the pleura. The right and left crura had been completely dissected free of all hernia sac and a circumferential dissection was performed. The GE junction was back in the abdominal cavity under no tension. Two Ethibond sutures were placed posterior with a tie knot system. This was done over a 48-Kyr[place]z bougie. The fundus was then wrapped posterior to the stomach and an anterior wrap 360 degree wrap was performed using 3 sutures of Ethibond. The middle of which was a small amount of the GE junction was obtained in the suture. There was no bleeding. The patient was hemodynamically stable throughout the procedure even with the known small pleura hole. EGD scope was passed into the esophagus, stomach to the level of duodenum without obstruction. There was no significant stenosis at the GE junction or in the esophageal hiatus. No evidence of mucosal tears or injury. EGD scope was used to decompress the stomach. It was pulled and removed. All ports were removed under camera visualization without bleeding. Pneumoperitoneum was let down. A 4-0 Monocryl was used to close all skin incisions followed by Dermabond. X-ray came in the room and an x-ray was performed, which showed a moderate size right pneumothorax. The right lateral chest was prepped and draped in a sterile fashion. Lateral to the breast, a small incision was made and dissection was performed down to the 5th intercostal space. Over the 6th rib, a Selena clamp was used to enter the pleural space and a chest tube was passed. Postprocedure film shows the tip to be in the apex. No residual pneumothorax. The chest tube was sewn in place using silk suture. Vaseline gauze and sterile dressings with silk tape were placed. The chest tube was placed to a Pleur-evac. The patient was sent to Recovery in stable condition. All instrument counts, needle counts, and lap counts were correct. Job ID: [id number]
[2019-02-02] MEDS: Anastrozole 1 MG TAB PO SCH (08:07)
[2019-02-02] MEDS: Pantoprazole 40 MG VIAL IVP SCH (08:07)
--- NOTE | 2019-02-02 08:19 | RAD ---
AP CHEST: History: Chest tube placement. Comparison: 02-01-19 FINDINGS: Right chest tube is unchanged. No evidence of pneumothorax. No infiltrate or effusion. Lungs appear a erated and clear. IMPRESSION: No acute interval change. POS: TPC
--- NOTE | 2019-02-02 12:02 | PDOC.HOSPP ---
- Subjective Encounter Date: 02/02/19 Encounter Time: 07:30 Subjective: Patient seen and examined. No new complaints. 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, she has chest tube in place, she is in NSR - Objective Vital Signs & Weight: Vital Signs (12 hours) Temp Pulse Resp BP Pulse Ox 02/02/19 11:32 98.3 F 74 16 115/58 L 94 L 02/02/19 07:58 97.8 F 72 16 131/62 96 02/02/19 04:25 98.8 F 87 16 133/62 96 02/02/19 00:33 98.1 F 85 16 177/58 H 92 L Weight Weight 215 lb I&O: 02/01/19 02/02/19 02/03/19 06:59 06:59 06:59 Intake Total 1800 500 738 Output Total 110 100 250 Balance 1690 400 488 Result Diagrams: 02/01/19 00:45 02/01/19 00:45 Additional Labs: Accuchecks 02/01/19 17:28 POC Glucose 103 Radiology Reviewed by me: Yes (chest xray reviewed) EKG Reviewed by me: Yes (nsr) ROS - Review of Systems Constitutional: denies: fever, chills, sweats, weakness, malaise, other Eyes: denies: pain, vision change, conjunctivae inflammation, eyelid inflammation, redness, other ENT: denies: ear pain, ear discharge, nose pain, nose discharge, nose congestion , mouth pain, mouth swelling, throat pain, throat swelling, other Respiratory: reports: cough. denies: dry, shortness of breath, hemoptysis, SOB with excertion, pleuritic pain, sputum, wheezing, other Cardiovascular: denies: chest pain, palpitations, orthopnea, paroxysmal noc. dyspnea, edema, light headedness, other Gastrointestinal: denies: nausea, vomitting, abdominal pain, diarrhea, constipation, melena, hematochezia, other Genitourinary: denies: dysuria, frequency, incontinence, hematuria, retention, other Musculoskeletal: denies: neck pain, shoulder pain, arm pain, back pain, hand pain, leg pain, foot pain, other Skin: denies: rash, lesions, varsha, bruising, other - Medication Medications: Active Medications Generic Name Dose Route Start Last Admin Trade Name Freq PRN Reason Stop Dose Admin Anastrozole 1 mg 01/31/19 09:00 02/02/19 08:07 Arimidex PO 1 mg DAILY ERI Administration Diltiazem HCl 180 mg 02/02/19 09:00 02/02/19 08:07 Cardizem Cd PO 180 mg DAILY ERI Administration Enoxaparin Sodium 40 mg 01/30/19 21:00 02/01/19 20:45 Lovenox SC 40 mg 2100 ERI Administration Fentanyl Citrate 2,000 mcg/ 100 mls @ 0 mls/hr 01/30/19 10:42 02/01/19 20:37 Sodium Chloride IV 100 mls INF PRN Administration Pain As Directed Dextrose/Sodium Chloride 1,000 mls @ 0 mls/hr 02/01/19 09:29 02/01/19 13:59 D5 0.9% Ns IV 1,000 mls .Q0M ERI Administration KVO Pantoprazole Sodium 40 mg 01/31/19 09:00 02/02/19 08:07 Protonix IVP 40 mg DAILY ERI Administration - Exam NAD, awake alert Eye: PERRL, anicteric sclera ENT: normocephalic atraumatic, no oropharyngeal lesions Neck: supple, symmetric, no JVD Heart: RRR, no murmur, no gallops, no rubs Respiratory: CTAB, no wheezes, no rales, no ronchi Respiratory - other findings: chest tube in place Gastrointestinal: soft, non-tender, non-distended, normal bowel sounds, no palpable masses, no hepatomegaly, no splenomegaly Extremities: no cyanosis, no clubbing, no edema Skin: normal turgor, no lesions, no rashes Neurological: CN's grossly intact, normal sensation to touch, no focal deficits Musculoskeletal: normal tone, normal strength, no muscle wasting Psychiatric: normal affect, normal behavior, A&O x 3 Hosp A/P (1) Atrial fibrillation with RVR Code(s): I48.91 - UNSPECIFIED ATRIAL FIBRILLATION Status: Resolved Plan: now converted to NSR (2) Pneumothorax on right Code(s): J93.9 - PNEUMOTHORAX, UNSPECIFIED Status: Acute Plan: with chest tube in place (3) S/P hernia repair Code(s): Z98.890 - OTHER SPECIFIED POSTPROCEDURAL STATES; Z87.19 - PERSONAL HISTORY OF OTHER DISEASES OF THE DIGESTIVE SYSTEM Status: Acute (4) Anemia, normocytic normochromic Code(s): D64.9 - ANEMIA, UNSPECIFIED Status: Chronic (5) HTN (hypertension) Code(s): I10 - ESSENTIAL (PRIMARY) HYPERTENSION Status: Chronic (6) Morbid obesity with BMI of 40.0-44.9, adult Code(s): E66.01 - MORBID (SEVERE) OBESITY DUE TO EXCESS CALORIES; Z68.41 - BODY MASS INDEX (BMI) 40.0-44.9, ADULT Status: Chronic - Plan old records reviewed/req, plan discussed w/ family continue chest tube as per primary team currently on FILE SYSTEM INSTALLER for pain control continue cardizem CD medication reviewed as above symptomatic treatment once tolerate diet and on oral pain meds and chest tube out, consider discharge , will defer to primary team
--- NOTE | 2019-02-02 12:32 | PDOC.CTH ---
Cardiology Progress Note - Subjective The pt seen and examined. No overnight events. No cardiac complaints. - Objective Vital Signs Temp Pulse Resp BP Pulse Ox 02/02/19 11:32 98.3 F 74 16 115/58 L 94 L 02/02/19 07:58 97.8 F 72 16 131/62 96 02/02/19 04:25 98.8 F 87 16 133/62 96 02/02/19 00:33 98.1 F 85 16 177/58 H 92 L Weight 215 lb 02/01/19 02/02/19 02/03/19 06:59 06:59 06:59 Intake Total 1800 500 738 Output Total 110 100 250 Balance 1690 400 488 - Physical Examination General/Neuro: alert & oriented x3 Neck: no JVD present Lungs: CTA Heart: RRR Abdomen: soft Extremities: other: (No edema) - Telemetry Telemetry Rhythm: SR - Labs Result Diagrams: 02/01/19 00:45 02/01/19 00:45 - Assessment/Plan 1. Atrial fibrillation with RVR - converted back to SR yesterday; on Diltiazem PO; At discharge, may start ASA 81mg QD. 2. S/p Paraesophageal hiatal hernia on 01/30/2019 3. Rt side Pneumothorax 4. HTN - stable 5. Morbid obesity 6. Anemia MAR reviewed pt. seen and eval. by me. I agree with the A/P by the CHIEF II DISPATCHER. She is maintaining NSR. Agree with po diltiazem and ASA on d/c. Chest clear. RRR. f/u with me in 1 month in office. Review of Systems - Review of Systems Constitutional: reports: no symptoms reported EENTM: reports: no symptoms reported Respiratory: reports: no symptoms reported Cardiac (ROS): reports: no symptoms reported ABD/GI: reports: no symptoms reported : reports: no symptoms reported Musculoskeletal: reports: no symptoms reported
[2019-02-02] MEDS ORDERED: HYDROcodone/Acetaminophen 10/325 mg Tablet PO PRN ×2 (12:40→12:41)
[2019-02-02] MEDS ORDERED: traMADol HCl 50 MG TAB PO PRN ×2 (12:42)
--- NOTE | 2019-02-02 12:48 | PDOC.GSPN ---
Surgery Progress Note: Subj - Subjective Patient reports: no new complaints Surgery Progress Note: Obj - Vital signs Vital signs: Vital Signs - Most Recent Temp Pulse Resp BP Pulse Ox 98.3 F 74 16 115/58 L 94 L 02/02/19 11:32 02/02/19 11:32 02/02/19 11:32 02/02/19 11:32 02/02/19 11:32 - Physical Exam General: no distress Cardiovascular: regular rate and rhythm Respiratory: clear to auscultation Abdomen: soft, appropriately tender, distended Wound: healing well Surgery Progress Note: Results - Labs Result Diagrams: 02/01/19 00:45 02/01/19 00:45 Surgery Progress Note: A/P - Problem (1) Pneumothorax on right Current Visit: Yes Code(s): J93.9 - PNEUMOTHORAX, UNSPECIFIED Status: Acute (2) S/P hernia repair Current Visit: Yes Code(s): Z98.890 - OTHER SPECIFIED POSTPROCEDURAL STATES; Z87.19 - PERSONAL HISTORY OF OTHER DISEASES OF THE DIGESTIVE SYSTEM Status: Acute - Plan Plan: chest tube removed ambulate more dc head bone grinder dc home tomorrow
[2019-02-02] MEDS ORDERED: Milk Of Magnesia 30 ML UDCUP PO SCH (13:00)
--- NOTE | 2019-02-02 14:54 | RAD ---
XR Chest 1 View Portable HISTORY: Chest tube removal COMPARISON: Earlier today FINDINGS: There has been interval removal of the right-sided chest tube since the earlier exam from t mylene. The heart size is normal. The lungs are well expanded without focal areas of consolidation, pneumothorax or pleural effusions. IMPRESSION: No radiographic evidence of acute cardiopulmonary process.
[2019-02-02] MEDS: Enoxaparin Sodium 40 MG/0.4 ML SYRINGE SC SCH (20:05)
[2019-02-03 08:08] VITALS: BP 133/63; TEMP 97.6
[2019-02-03] MEDS: Anastrozole 1 MG TAB PO SCH (08:12)
[2019-02-03] MEDS: Pantoprazole 40 MG VIAL IVP SCH (08:12)
--- NOTE | 2019-02-03 10:59 | PRG ---
DATE OF SERVICE: 02/03/2019 PROGRESS NOTE/SIGN-OUT NOTE/TRANSFER OF CARE NOTE PRIMARY CARE PHYSICIAN: Dr. Liam Williamson. DISCHARGE DISPOSITION: Home. PRIMARY DISCHARGE DIAGNOSES: 1. Status post laparoscopic hiatal hernia repair. 2. Transient atrial fibrillation with rapid ventricular response, converted to normal sinus rhythm. 3. Pneumothorax on the right side. SECONDARY DISCHARGE DIAGNOSES: 1. Morbid obesity with BMI of 40. 2. Hypertension. 3. Normocytic normochromic anemia. PRIMARY PROCEDURE/OPERATION: Laparoscopic hiatal hernia repair by Dr. Wade, chest tube placement for pneumothorax. RADIOLOGICAL INVESTIGATION: The patient had several chest x-rays while in hospital. Echocardiography showed normal EF. SIGNIFICANT LABORATORY DATA: WBC 11.7, hemoglobin 11.7, and platelets 296. Sodium 135, potassium 3.6, BUN 14, creatinine 0.94, and calcium 9.5. TSH 1.84. Magnesium 2.0. DISCHARGE MEDICATIONS: 1. Anastrozole 1 mg p.o. daily. 2. Aspirin 81 mg p.o. daily. 3. Vitamin D3 of 1000 units p.o. daily. 4. Vitamin B12 of 5000 mcg p.o. daily. 5. Ferrous sulfate 325 mg p.o. daily. 6. Glucosamine chondroitin sulfate 1 capsule p.o. daily. 7. Protonix 40 mg p.o. b.i.d. 8. Coenzyme Q10 of 200 mg p.o. daily. 9. Red yeast rice 600 mg p.o. daily. 10. Cardizem CD 180 mg p.o. daily. CONTRAINDICATION: None. CODE STATUS: Full code. INPATIENT PATIENT SERVICES COORDINATOR: Dr. Wade was primary. Sound Team was consulted for medical comanagement. TEST RESULTS PENDING ON DISCHARGE: None. ALLERGIES: NO KNOWN DRUG ALLERGIES. DISCHARGE PLAN: Post-hospital, the patient will follow up with Dr. Wade as instructed. The patient will make appointment with primary care physician in 1 week. The patient will follow up with Dr. Pretty as instructed. HOSPITAL COURSE: This is a 68-year-old female, who was electively admitted by Dr. Wade for hiatal hernia repair, which was done laparoscopically. Post-operation, the patient had transient atrial fibrillation with rapid ventricular response, required transfer to telemetry floor. Echocardiography showed normal EF. The patient converted to sinus rhythm. Initially, the patient was given Cardizem drip, but subsequently it was changed to Cardizem CD and she remained in sinus rhythm during entire hospital course subsequently. Cardiology recommended only aspirin for her stroke prophylaxis because of a very low CHADS2 score. The patient is given Cardizem CD upon discharge and she will continue all her previous medication. While in hospital, the patient's hospital course was complicated with pneumothorax, required chest tube placement, and pneumothorax resolved with chest tube, which was removed. Her pain was controlled initially with ALTERATION TAILOR, but subsequently she was not requiring any pain medication. The patient is ambulatory, tolerating p.o. well, and without any complaints. PHYSICAL EXAMINATION: GENERAL: I have seen and examined the patient bedside today. VITAL SIGNS: Currently, temperature 97.6, pulse 70, respiratory rate 20, saturation 95% on room air, blood pressure 133/63. Weight 215 pounds. GENERAL: The patient is currently alert, awake, in no acute distress. HEENT: Normocephalic and atraumatic. LUNGS: Clear to auscultation without any rhonchi or rales. CARDIAC: S1 and S2, regular without any murmur. No gallop. No rub. ABDOMEN: Soft, benign. Surgical site is clean and healthy. EXTREMITIES: No edema. NEUROLOGIC: Nonfocal examination. The patient is medically stable for discharge today. We will sign off. Job ID: [id number]
--- NOTE | 2019-02-04 01:13 | DIS ---
DATE OF ADMISSION: 01/30/2019 DATE OF DISCHARGE: 02/03/2019 ADMITTING DIAGNOSES: Paraesophageal hiatal hernia, pneumothorax. DISCHARGE DIAGNOSES: Paraesophageal hiatal hernia, pneumothorax, plus transient atrial fibrillation with RVR. PROCEDURES PERFORMED: Laparoscopic hiatal hernia repair with mesh and chest tube placement. CONDITION ON DISCHARGE: Improved. HOSPITAL COURSE: The patient had a large paraesophageal hernia. Her hernia sac and right pleura were fused. She ended up with a right chest tube postop. Her postop course was complicated by transient atrial fibrillation with RVR. She converted on her own. She was able to tolerate a liquid diet. Immediately after surgery, she was ambulatory without difficulty. Her pain was controlled. On the day of discharge, she is doing well. She is discharged home on Karen Momin Zofran sent to her pharmacy. Her chest tube has been removed and her postprocedure film shows no pneumothorax. She will follow up with me in 2 weeks. Job ID: [id number]
--- NOTE | 2019-02-06 22:38 | EKG ---
Test Reason : STAT Blood Pressure : / mmHG Vent. Rate : 158 BPM Atrial Rate : 156 BPM P-R Int : 000 ms QRS Dur : 078 ms QT Int : 260 ms P-R-T Axes : 000 011 025 degrees QTc Int : 421 ms Atrial fibrillation with rapid ventricular response Nonspecific ST abnormality Abnormal ECG When compared with ECG of 29-JAN-2019 10:51, Atrial fibrillation has replaced Sinus rhythm Vent. rate has increased BY 82 BPM Non-specific change in ST segment in Inferior leads ST now depressed in Anterolateral leads Confirmed by Ralf RODGERS ([id number]) on 02/06/2019 10:37:48 PM Referred By: Confirmed By:Ralf RODGERS
== END 2019-02-03 11:58 | disposition home or self-care (01) | DRG 327 ==
LOC: SDC 05:54 → SURG A 15:12 → 2NO 02-01 02:03
PROVIDERS: ADMIT Surgery; ATTEND Surgery
PROC: 0BQT4ZZ Repair Diaphragm, Percutaneous Endoscopic Approach (ICD-10-PCS; principal; 2019-01-30)
PROC: 0W9930Z Drainage of Right Pleural Cavity with Drainage Device, Percutaneous Approach (ICD-10-PCS; 2019-01-30)
PROC: 0DV44ZZ Restriction of Esophagogastric Junction, Percutaneous Endoscopic Approach (ICD-10-PCS; 2019-01-30)
DX: K44.9 Diaphragmatic hernia without obstruction or gangrene (principal); J95.811 Postprocedural pneumothorax; Z68.41 Body mass index [BMI] 40.0-44.9, adult; I97.191 Other postprocedural cardiac functional disturbances following other surgery; K56.7 Ileus, unspecified; I48.91 Unspecified atrial fibrillation; E66.01 Morbid (severe) obesity due to excess calories; I10 Essential (primary) hypertension; D64.9 Anemia, unspecified; R32 Unspecified urinary incontinence; G89.29 Other chronic pain; M25.569 Pain in unspecified knee; Y83.8 Other surgical procedures as the cause of abnormal reaction of the patient, or of later complication, without mention of misadventure at the time of the procedure; Z85.3 Personal history of malignant neoplasm of breast; Z90.49 Acquired absence of other specified parts of digestive tract; Z79.82 Long term (current) use of aspirin; Z79.899 Other long term (current) drug therapy
CPT/HCPCS: 36415; 36416; 71045; 74018; 80048; 83735; 84443; 85025; 90471; 90670; 93005; 93010; 93306; C9113; G0009; J0131; J0670; J0690; J1100; J1160; J1170; J1650; J2001; J2405; J2704; J3010; J3490

== ENCOUNTER 2019-02-20 11:40 | Outpatient (CLI) | payer BC ==
--- NOTE | 2019-02-20 14:05 | RAD ---
PA AND LATERAL VIEWS CHEST: HISTORY: Hernia repair, difficulty breathing, cough. FINDINGS: Comparison is made with the exam of 02/02/2019. The heart size is normal. The lungs are expanded wit hout focal areas of consolidation, pneumothoraces, or pleural effusions. IMPRESSION: No acute process. POS: THONYH
== END 2019-02-20 11:41 | disposition home or self-care (01) ==
LOC: RAD 11:40
PROVIDERS: ATTEND Surgery
DX: J93.9 Pneumothorax, unspecified (principal)
CPT/HCPCS: 71046

== ENCOUNTER 2019-10-16 10:17 | Outpatient (CLI) | payer BC ==
--- NOTE | 2019-10-16 10:51 | MMO ---
Bilateral MAMMO Bilat Diag DDI+FRANKIE. CLINICAL HISTORY: Patient is 68 years old and is seen for diagnostic exam. The patient has no family history of breast cancer. The patient has a history of malignant (generic) in the left breast in 2015. The patient has a history of left Excisional Biopsy in 2015 - malignant. VIEWS: The views performed were: bilateral craniocaudal with tomosynthesis; bilateral mediolateral oblique with tomosynthesis; and bilateral mediolateral with tomosynthesis. This study has been interpreted with the assistance of computer-aided detection. MAMMOGRAM FINDINGS: There are scattered fibroglandular densities. Benign calcifications are noted bilaterally. There are stable post-operative changes in the left breast. There are no suspicious masses, suspicious calcifications, or new areas of architectural distortion. IMPRESSION: THERE IS NO MAMMOGRAPHIC EVIDENCE OF MALIGNANCY. A ROUTINE FOLLOW-UP MAMMOGRAM IN 1 YEAR IS RECOMMENDED. THE RESULTS OF THIS EXAM WERE SENT TO THE PATIENT. ACR BI-RADS Category 2 - Benign finding MAMMOGRAPHY NOTE: 1. A negative mammogram report should not delay a biopsy if a dominant of clinically suspicious mass is present. 2. Approximately 10% to 15% of breast cancers are not detected by mammography. 3. Adenosis and dense breasts may obscure an underlying neoplasm. Reported by: YOHAN HAAS MD Electonically Signed: [id number]
== END 2019-10-16 10:18 | disposition home or self-care (01) ==
LOC: BICMAMMO 10:17
PROVIDERS: ATTEND Internal Medicine Hematology & Oncology
DX: Z08 Encounter for follow-up examination after completed treatment for malignant neoplasm (principal); Z85.3 Personal history of malignant neoplasm of breast
CPT/HCPCS: 77066; G0279

== ENCOUNTER → 2021-02-16 | Day surgery (SDC) | payer BC | LOC: NM 07:26 → BICRAD 07:27 | PROVIDERS: ATTEND Family Medicine Sports Medicine | DX: K21.9 Gastro-esophageal reflux disease without esophagitis (principal); K30 Functional dyspepsia; R11.0 Nausea | CPT/HCPCS: 78264; A9541 ==